=== PATIENT | female | born 1995 | race Caucasian/White ===

== ENCOUNTER 2021-09-15 08:00 | Inpatient (IN) | payer BC ==
[2021-09-15] MEDS ORDERED: Ondansetron 4 MG/2 ML SDV IVPUSH PRN (10:28)
[2021-09-15] MEDS ORDERED: Carboprost Tromethamine 250 MCG/1 ML Amp IM PRN (10:28)
[2021-09-15] MEDS ORDERED: Lidocaine 1% 30 ML SDV INJECT PRN (10:28)
[2021-09-15] MEDS ORDERED: Misoprostol 400 MCG (4 X 100 MCG TAB) RECTAL PRN (10:28)
[2021-09-15] MEDS ORDERED: Methylergonovine 0.2 MG/1 ML Amp IM PRN (10:28)
[2021-09-15] MEDS ORDERED: Tranexamic Acid 1,000 MG in Sodium Chloride 0.9% 100 ML IV PRN (10:28)
[2021-09-15] MEDS ORDERED: Lactated Ringers 1,000 ML IV ONE (10:28)
[2021-09-15] MEDS ORDERED: Oxytocin/Normal Saline 30 UNIT/500 ML BAG IV SCH (10:30)
[2021-09-15] MEDS ORDERED: Nalbuphine 10 MG/1 ML Vial IM ONE (11:50)
[2021-09-15] MEDS: Lactated Ringers 1,000 ML IV SCH ×4 (13:57→20:02)
[2021-09-15] MEDS ORDERED: fentaNYL 100 MCG/2 ML SDV ONE ×2 (14:01→17:49)
[2021-09-15] MEDS ORDERED: EPINEPHrine 1 MG/ML SDV ONE ×3 (14:01→17:50)
[2021-09-15] MEDS ORDERED: fentaNYL 100 MCG/2 ML SDV ITHECAL ONE ×2 (14:10→17:50)
[2021-09-15] MEDS ORDERED: Oxytocin 10 Units/1 ML SDV IM PRN (19:24)
[2021-09-15] MEDS ORDERED: Benzocaine/Menthol 20%-0.5% Spray 78 GM Cannister TOP PRN (19:24)
[2021-09-15] MEDS ORDERED: Simethicone 80 MG Tab.Chew PO PRN (19:24)
[2021-09-15] MEDS ORDERED: Famotidine 20 MG Tab PO PRN (19:24)
[2021-09-15] MEDS ORDERED: Zolpidem 5 MG Tab PO PRN (19:24)
[2021-09-15] MEDS: Docusate Sodium 100 MG Cap PO PRN (21:08)
[2021-09-15] MEDS: Ibuprofen 800 MG Tab PO PRN (21:08)
[2021-09-16] MEDS: Ibuprofen 800 MG Tab PO PRN ×2 (08:04→16:16)
[2021-09-16] MEDS: Docusate Sodium 100 MG Cap PO PRN ×2 (08:04→20:34)
[2021-09-16] MEDS: Prenatal Multivitamin with Calcium/Folic Acid/Iron Tab PO SCH (08:04)
[2021-09-16] MEDS: Ferrous Sulfate 325 MG Tab PO SCH (18:02)
[2021-09-16] MEDS: Acetaminophen 325 MG Tab PO PRN (20:34)
[2021-09-17] MEDS: Ibuprofen 800 MG Tab PO PRN (01:23)
[2021-09-17] MEDS: Acetaminophen 325 MG Tab PO PRN ×2 (02:25→09:33)
[2021-09-17] MEDS: Ferrous Sulfate 325 MG Tab PO SCH (09:33)
[2021-09-17] MEDS: Prenatal Multivitamin with Calcium/Folic Acid/Iron Tab PO SCH (09:34)
[2021-09-17] MEDS: Docusate Sodium 100 MG Cap PO PRN (09:34)
== END 2021-09-17 11:30 | disposition home or self-care (01) | DRG 560 ==
LOC: DL.OBCHECK 08:00 → DL.OB 10:07 → DL.MS 09-16 07:51
PROVIDERS: ADMIT Family Medicine; ATTEND Family Medicine
PROC: 10E0XZZ Delivery of Products of Conception, External Approach (ICD-10-PCS; principal; 2021-09-15)
PROC: 10907ZC Drainage of Amniotic Fluid, Therapeutic from Products of Conception, Via Natural or Artificial Opening (ICD-10-PCS; 2021-09-15)
PROC: 10H07YZ Insertion of Other Device into Products of Conception, Via Natural or Artificial Opening (ICD-10-PCS; 2021-09-15)
PROC: 0HQ9XZZ Repair Perineum Skin, External Approach (ICD-10-PCS; 2021-09-15)
PROC: 3E0R3BZ Introduction of Anesthetic Agent into Spinal Canal, Percutaneous Approach (ICD-10-PCS; 2021-09-15)
PROC: 00HU33Z Insertion of Infusion Device into Spinal Canal, Percutaneous Approach (ICD-10-PCS; 2021-09-15)
DX: O13.4 Gestational [pregnancy-induced] hypertension without significant proteinuria, complicating childbirth (principal); Z37.0 Single live birth; O70.0 First degree perineal laceration during delivery; O62.2 Other uterine inertia; O69.2XX0 Labor and delivery complicated by other cord entanglement, with compression, not applicable or unspecified; Z20.822 Contact with and (suspected) exposure to COVID-19; Z28.82 Immunization not carried out because of caregiver refusal; Z3A.39 39 weeks gestation of pregnancy
CPT/HCPCS: 01963; 01967; 36415; 51701; 59409; 81003; 82565; 82570; 83615; 84156; 84450; 84460; 84520; 84550; 85027; A9270-GY; J0171; J2300; J2405; J2590; J3010; J7120; U0002

== ENCOUNTER 2023-04-02 11:49 | Inpatient (IN) | payer BC ==
[~2023-04-02 11:49] MED LIST: Misoprostol 50 MCG (1/2 of 100 MCG) Tab VAG ONE
[2023-04-02] MEDS ORDERED: Acetaminophen 325 MG Tab PO PRN ×2 (12:00)
[2023-04-02] MEDS ORDERED: Ondansetron 4 MG/2 ML SDV IVPUSH PRN (12:00)
[2023-04-02] MEDS ORDERED: Lidocaine 1% 30 ML SDV INJECT PRN (12:00)
[2023-04-02] MEDS ORDERED: Misoprostol 400 MCG (4 X 100 MCG TAB) RECTAL PRN (12:00)
[2023-04-02] MEDS ORDERED: Carboprost Tromethamine 250 MCG/1 ML Amp IM PRN (12:00)
[2023-04-02] MEDS ORDERED: Tranexamic Acid 1,000 MG in Sodium Chloride 0.9% 100 ML IV PRN (12:00)
[2023-04-02] MEDS ORDERED: Methylergonovine 0.2 MG/1 ML Amp IM PRN (12:00)
[2023-04-02] MEDS ORDERED: Oxytocin/Normal Saline 30 UNIT/500 ML BAG IV SCH ×2 (12:00)
[2023-04-02] MEDS ORDERED: Lactated Ringers 1,000 ML IV ONE (12:00)
[2023-04-02] MEDS ORDERED: Misoprostol 25 MCG (1/4 of 100 MCG) Tab VAG PRN (12:00)
[2023-04-02] MEDS ORDERED: Lactated Ringers 1,000 ML IV SCH (12:00)
[2023-04-02] MEDS ORDERED: Sodium Chloride 0.9% 10 ML Syringe FLUSH PRN (12:00)
[2023-04-02 12:20] LABS: HEMATOCRIT 35.9 % (37.0-47.0); HEMOGLOBIN 12.4 g/dL (12.0-16.0); MEAN CORPUSCULAR HGB CONC 34.5 g/dL (33.0-35.0); MEAN CORPUSCULAR VOLUME 92.5 fL (80-100); RED BLOOD CELL COUNT 3.88 10^6/uL (4.2-5.4); WHITE BLOOD CELL COUNT,WBC 7.4 10^3/uL (5.0-10.0)
[2023-04-02] MEDS: Sodium Chloride 0.9% 10 ML Syringe FLUSH SCH ×2 (16:56→21:09)
[2023-04-03] MEDS ORDERED: Phenylephrine HCl In 0.9% NaCl 1 MG/10 ML Syringe IVPUSH PRN (02:12)
[2023-04-03] MEDS ORDERED: ePHEDrine 50 MG/ML SDV IVPUSH PRN (02:12)
[2023-04-03] MEDS ORDERED: Ropivacaine 200 MG in Premix Bag 1 BAG EPIDUR SCH (02:15)
[2023-04-03] MEDS ORDERED: Benzocaine/Menthol 20%-0.5% Spray 78 GM Cannister TOP PRN (08:03)
[2023-04-03] MEDS ORDERED: Witch Hazel Medicated Pads 100/Jar TOP PRN (08:03)
[2023-04-03] MEDS ORDERED: Zolpidem 5 MG Tab PO PRN (08:03)
[2023-04-03] MEDS ORDERED: Simethicone 80 MG Tab.Chew PO PRN (08:03)
[2023-04-03] MEDS: Ibuprofen 800 MG Tab PO PRN ×2 (08:24→20:01)
[2023-04-03] MEDS: Docusate Sodium 100 MG Cap PO PRN ×2 (08:24→20:01)
[2023-04-03] MEDS: Prenatal Multivitamin with Calcium/Folic Acid/Iron Tab PO SCH (08:24)
[2023-04-03] MEDS: Sodium Chloride 0.9% 10 ML Syringe FLUSH SCH ×2 (09:48→20:01)
[2023-04-03 17:48] LABS: HEMATOCRIT 34.9 % (37.0-47.0); MEAN CORPUSCULAR HGB CONC 34.4 g/dL (33.0-35.0); MEAN CORPUSCULAR VOLUME 93.1 fL (80-100); RED BLOOD CELL COUNT 3.75 10^6/uL (4.2-5.4); WHITE BLOOD CELL COUNT,WBC 8.9 10^3/uL (5.0-10.0)
[2023-04-04] MEDS: Docusate Sodium 100 MG Cap PO PRN (07:55)
[2023-04-04] MEDS: Ibuprofen 800 MG Tab PO PRN (07:55)
[2023-04-04] MEDS: Prenatal Multivitamin with Calcium/Folic Acid/Iron Tab PO SCH (08:00)
== END 2023-04-04 10:10 | disposition home or self-care (01) | DRG 560 ==
LOC: DL.OBCHECK 11:49 → DL.OB 12:01 → OBSVTOIN 04-03 01:33
PROVIDERS: ADMIT Family Medicine; ATTEND Family Medicine
PROC: 10E0XZZ Delivery of Products of Conception, External Approach (ICD-10-PCS; principal; 2023-04-03)
PROC: 3E0P7VZ Introduction of Hormone into Female Reproductive, Via Natural or Artificial Opening (ICD-10-PCS; 2023-04-03)
PROC: 3E0R3BZ Introduction of Anesthetic Agent into Spinal Canal, Percutaneous Approach (ICD-10-PCS; 2023-04-03)
PROC: 00HU33Z Insertion of Infusion Device into Spinal Canal, Percutaneous Approach (ICD-10-PCS; 2023-04-03)
DX: O71.82 Other specified trauma to perineum and vulva (principal); Z37.0 Single live birth; Z3A.39 39 weeks gestation of pregnancy
CPT/HCPCS: 01960; 01996; 36415; 59409; 85027; A9270-GY; J2590; J2795; J3490; J7120